=== PATIENT | female | born 2005 | race Caucasian/White ===

== ENCOUNTER 2024-06-07 20:21 | Emergency (ER) | payer OTHER, SELFPAY ==
[2024-06-07 20:33] VITALS: BP 127/80
--- NOTE | 2024-06-07 21:24 | ED.GENMED ---
History of Present Illness
General
Chief Complaint: Breathing Problem
Source: patient and family
Exam Limitations: none
Time Seen by Provider: 06/07/24 20:56
Nursing documentation reviewed up to this point in time: agreed with
History of Present Illness
History of Present Illness:
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
antibiotics, never really improved from the steroids or antibiotics feels wheeziness with some posterior throat pain and swollen nodes had mono a few years ago with fatigue but no respiratory symptoms, no history of asthma the father has asthma only
a solitary exposure to smoke, feels stuffy in her nose had a CAT scan to rule out PE which was negative,
Past History
Past History
ED Past Medical History: None
ED Past Surgical History: Orthopedic
Social History
Tobacco: Non-smoker
Alcohol: None
Personal: Single
Living: with family
Employment: Student
Family History
Family History: Asthma
Review of Systems
Review of Systems
All Other Systems: Not applicable
Constitutional: Reports fatigue; Denies fever
EENT: Reports sore throat, mouth pain and runny nose
Respiratory: Reports cough and trouble breathing; Denies hemoptysis
Cardiac: Reports no symptoms
ABD/GI: Reports no symptoms
: Reports no symptoms
Musculoskeletal: Reports no symptoms
Skin: Reports no symptoms
Neurological: Reports no symptoms
Endocrine: Reports no symptoms
Phy Exam
Physical Exam
Physical Exam:
Physical Exam
General: no apparent distress, not acutely ill
Neck: Stuffy nose, posterior pharynx is clear
Heart: s1/s2 regular rate and rhythm, no murmur. equal radial pulses.
Lungs: Fair air movement wheeze in the right base
Abdomen: Not tender
Neuro: alert and oriented. no focal neurological deficits
Skin: no rash
Psychiatric: well kept. interactive and cooperative
Extremities: no edema. no calf tenderness. negative homans. good distal pulses
Course
Orders/Labs/Results
Orders:
Orders
06/07/24 21:22
Electrocardiogram (*1) Stat
Reason for Study: Other
Other Reason for Exam: pneumonia
EKG- Treatment ONCE
IV Insert/Care/Rem.- Treatment PRN
Dexamethasone Sod Phosphate [Decadron] 10 mg IV NOW STA
Ipratropium/Albuterol Sulfate [Duoneb] 3 ml INH R NOW STA
CR Chest - 2 Views Urgent
Comment:
Reason For Exam: sob
06/07/24 21:25
Diphenhydramine [Benadryl] 25 mg IV NOW STA
06/07/24 21:34
COVID-19 Antigen Urgent
Source: Nasal Swab
Complete Blood Count/With Diff Urgent
Comprehensive Metabolic Panel Urgent
Monotest Urgent
06/07/24 23:34
0.9% Sodium Chloride 1000 ml [Nss] 1,000 ml IV BOLUS
Acetaminophen [Tylenol] 650 mg PO NOW STA
Ketorolac [Toradol] 30 mg IV NOW STA
Abnormal Lab Results
06/07/24
21:34
RBC 4.05 L 10^6/uL
(4.20-5.40)
MCH 34.6 H pg
(27.0-31.0)
RDW 11.4 L %
(11.5-14.5)
MPV 11.0 H fL
(7.4-10.4)
Glucose 120 H mg/dl
(70-99)
Total Bilirubin 1.4 H mg/dl
(0.2-1.3)
SARS-CoV-2 Antigen Positive A
(Negative)
06/07/24 21:34
06/07/24 21:34
Vital Signs
Initial and Last Documented VS:
Initial Vital Signs
Temp Pulse Resp BP Pulse Ox
97.4 F 79 18 127/80 98
06/07/24 20:33 06/07/24 20:33 06/07/24 20:33 06/07/24 20:33 06/07/24 20:33
Last Documented Vital Signs
Temp Pulse Resp BP Pulse Ox
97.4 F 67 16 129/76 99
06/07/24 20:33 06/07/24 21:53 06/07/24 21:53 06/07/24 21:53 06/07/24 22:56
MDM/Problems Addressed
Differential Diagnosis Includes:
URI bronchitis pneumonia inflammatory idiopathic already ruled out for PE, is bronchospastic peak flow 250 will try nebs and steroids labs may benefit from PFTs as an outpatient
MDM/Problems Addressed:
URI
*Critical Care Note
Total Time (30-74mins, 75-104mins- exclusive of procedures): Not Applicable
Update Note
Update Note:
Update patient has COVID, I think explains her symptoms would not recommend giving her Paxlovid young healthy
ED Attending Note
-
Portions of this chart may have been created with voice recognition software.� Occasional wrong word or��sound alike� substitutions may have occurred due to the inherent limitations of voice recognition software.
Discharge Plan
Departure
Patient Disposition: Home (Routine Discharge)
Date of Disposition: 06/07/24
Time of Disposition: 23:34
Patient with high blood pressure during this ER visit?: No
Condition: Good
Covid-19: Confirmed COVID-19
Discharge Problem:
COVID-19
Instructions: COVID-19 ED, COVID-19 in adults - Discharge instructions
Prescriptions:
New
methylprednisolone [Methylpred DP] 4 mg tablets,dose pack
See Rx Instructions .ROUTE .COMPLEX Qty: 21 0RF
Rx Instructions:
for 6 days
albuterol sulfate 1.25 mg/3 mL solution for nebulization
1.25 mg inhalation Q4H PRN (Reason: shortness of breath or wheezing) Qty: 75 0RF
Referrals:
Aron Iyer MD [Active] - Next open appointment
Mary Granados MD [Family Provider] -
Activity Restrictions/Additional Instructions:
Drink plenty of fluids, Tylenol as needed for fever body aches
Interventions
Interventions:
*General Assessment Last Done: 06/07/24 20:33
ED- Fall Risk Assessment Last Done: 06/07/24 20:33
*ED COVID-19 Vaccine History Last Done: 06/07/24 20:41
*Nursing Disposition Last Done: 06/08/24 00:50
ED- Cardiac Assessment Last Done: 06/07/24 22:06
ED- Pulmonary Assessment Last Done: 06/07/24 22:06
Discharge Date and Time
Discharge Date/Time: 06/08/24 01:00
Print Language: CANADIAN
[2024-06-07] MEDS: DUONEB 3 ML INH (21:41)
[2024-06-07] MEDS: DECADRON 10 MG IV (21:42)
[2024-06-07] MEDS: BENADRYL 25 MG IV (21:42)
[2024-06-07 21:53] VITALS: BP 129/76
[2024-06-07 22:09] LABS: ALT (SGPT) 16 U/L (0-35); AST (SGOT) 25 U/L (14-36); Alkaline Phosphatase 43 U/L (38-126); Blood Urea Nitrogen 11 mg/dl (7-17); Calcium 9.9 mg/dl (8.4-10.2); Carbon Dioxide 24 mmol/L (22-30); Chloride 106 mmol/L (98-107); Glucose 120 mg/dl (70-99); Potassium 3.5 mmol/L (3.5-5.1); Sodium 136 mmol/L (135-145); Total Bilirubin 1.4 mg/dl (0.2-1.3); Total Protein 6.5 g/dl (6.3-8.2); eGFR > 60.00
[2024-06-07 22:12] LABS: COVID-19 Antigen Positive (Negative)
[2024-06-07 22:18] LABS: Monotest Negative (Negative)
[2024-06-07 22:48] LABS: % Basophils 0.3 % (0-2); % Immature Granulocytes 0.3 % (0-0.5); % Lymphocytes 24.1 % (20.5-51.1); % Monocytes 7.9 % (1.7-9.3); % Neutrophils 66.4 % (42.2-75.2); Absolute Eosinophils 0.1 10^3/uL (0-0.7); Absolute Lymphocytes 1.7 10^3/uL (1.2-3.4); Absolute Monocytes 0.6 10^3/uL (0.1-0.6); Absolute Neutrophils 4.8 10^3/uL (1.4-6.5); Hematocrit 38.1 % (37.0-47.0); Mean Corp Hgb Conc. 36.7 g/dL (33.0-37.0); Mean Corpuscular Hgb 34.6 pg (27.0-31.0); Mean Corpuscular Volume 94.1 fL (81.0-99.0); Nucleated Red Blood Cells % 0 %; Platelet Count 132 10^3/uL (130-400); Red Blood Cell Count 4.05 10^6/uL (4.20-5.40); Red Cell Dist. Width 11.4 % (11.5-14.5); White Blood Cell Count 7.2 10^3/uL (4.8-10.8)
[2024-06-07] MEDS: NSS 1000 IV (23:43)
[2024-06-07] MEDS: TORADOL 30 MG IV (23:44)
[2024-06-07] MEDS: TYLENOL 650 MG PO (23:44)
== END 2024-06-08 01:00 | disposition home or self-care (01) ==
LOC: EMR 20:21
PROVIDERS: EMERGENCY PHYSICIAN Emergency Medicine; FAMILY PHYSICIAN Family Medicine
DX: U07.1 COVID-19 (principal)
CPT/HCPCS: 99283; 94640; 96374; 96375; 71046; 80053; 85025; 86308; 87811; 93005